=== PATIENT | female | born 1990 | race American Indian/Alaskan Native ===

== ENCOUNTER 2018-03-31 23:32 | Emergency (ER) | payer BC ==
[2018-03-31 23:50] VITALS: BP 162/110; PULSE 80; RESP 16; TEMP 98.6; O2SAT 99
--- NOTE | 2018-04-01 00:26 | C.PDOC ---
History Of Present Illness 27 y/o female patient presented to ED c/o generalized itching and tingling that began a few hours ago after taking macrobid which was prescribed to her earlier today to treat her UTI. Patient denies taking anything for the symptoms. She also denies rash, shortness of breath, chest tightness Time Seen by Provider: 03/31/18 23:56 Chief Complaint (Nursing): Allergic Reaction History Per: Patient History/Exam Limitations: no limitations Onset/Duration Of Symptoms: Hrs Current Symptoms Are (Timing): Still Present Possible Cause: Medication (macrobid) Associated Symptoms: Itching, Other (tingling) Home/EMS Treatment: None Past Medical History Reviewed: Historical Data, Nursing Documentation, Vital Signs Vital Signs: Last Vital Signs Temp 98.6 F 03/31/18 23:46 Pulse 80 03/31/18 23:46 Resp 16 03/31/18 23:46 BP 162/110 H 03/31/18 23:46 Pulse Ox 99 04/01/18 01:54 Surgical History: No Surg Hx Family History: States: No Known Family Hx - Social History Hx Alcohol Use: Yes Hx Substance Use: No Review Of Systems Cardiovascular: Negative for: Other (chest tightness) Respiratory: Negative for: Shortness of Breath Skin: Negative for: Rash Physical Exam - Physical Exam Appears: Non-toxic, No Acute Distress Skin: Normal Color, Warm, Dry, No Rash, No Other (hives) Head: Atraumatic, Normacephalic Eye(s): bilateral: Normal Inspection Oral Mucosa: Moist Tongue: Normal Appearing, No Swelling Lips: Normal Appearing, No Swelling Throat: Normal, No Erythema, No Other (Swelling) Neck: Normal, Supple, No Other (Swelling) Chest: Symmetrical, No Tenderness Cardiovascular: Rhythm Regular Respiratory: Normal Breath Sounds, No Accessory Muscle Use, No Rales, No Rhonchi , No Stridor, No Wheezing Neurological/Psych: Oriented x3, Normal Speech Gait: Steady ED Course And Treatment O2 Sat by Pulse Oximetry: 99 (RA) Pulse Ox Interpretation: Normal Progress Note: Benadryl and prednisone were ordered. Patient is resting comfortably in the ER, tolerating PO, has no shortness of breath, and was advised to follow up with physican in 1-2 days, or return if symptoms worsen. 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 - Scribe Statement The provider has reviewed the documentation as recorded by the Phuc Moniqueed All medical record entries made by the Phuc were at my direction and personally dictated by me. I have reviewed the chart and agree that the record accurately reflects my personal performance of the history, physical exam, medical decision making, and the department course for this patient. I have also personally directed, reviewed, and agree with the discharge instructions and disposition.
== END 2018-04-01 00:45 | disposition home or self-care (01) ==
LOC: C.ER 23:32
DX: T78.40XA Allergy, unspecified, initial encounter (principal); T50.995A Adverse effect of other drugs, medicaments and biological substances, initial encounter; Y92.89 Other specified places as the place of occurrence of the external cause

== ENCOUNTER 2018-11-16 11:35 | Emergency (ER) | payer BC ==
[2018-11-16 11:45] VITALS: RESP 20
--- NOTE | 2018-11-16 14:18 | C.PDOC ---
History Of Present Illness 28 year old female presents to the ED complaining of pain to "tailbone" since yesterday. Reports she was in the passenger seat in a vehicle going to [place] from [place] and when she got out of the car after one hour drive, she felt mild pain to tailbone area. States pain was 5/10 yesterday but feels like a 9/10 while in the ED. Pain is worse with walking, standing, and on occasion with sitting. Pain is alleviated when laying down. Notes she took Advil last night and noted little relief. Denies any trauma, weakness, recent illness, sudden sedentary lifestyle, or any other complaints. Time Seen by Provider: 11/16/18 11:53 Chief Complaint (Nursing): Back Pain History Per: Patient History/Exam Limitations: no limitations Onset/Duration Of Symptoms: Days (1) Current Symptoms Are (Timing): Still Present Quality Of Discomfort: "Pain" Pain Scale Rating Of: 9 Previous Symptoms: None Associated Symptoms: None Exacerbating Factor(s): Movement, Sitting, Standing Past Medical History Reviewed: Historical Data, Nursing Documentation, Vital Signs Vital Signs: Last Vital Signs Temp 99.1 F 11/16/18 11:44 Pulse 101 H 11/16/18 11:44 Resp 20 11/16/18 11:44 BP 138/86 11/16/18 11:44 Pulse Ox 99 11/16/18 11:44 - Medical History PMH: HTN Other Surgeries: Hx of surgeries Family History: States: No Known Family Hx - Social History Hx Alcohol Use: Yes Hx Substance Use: No Review Of Systems Constitutional: Negative for: Fever, Chills Respiratory: Negative for: Shortness of Breath Musculoskeletal: Positive for: Back Pain (tailbone pain ) Neurological: Negative for: Weakness, Numbness, Other (paresthesia ) Physical Exam - Physical Exam Appears: Non-toxic, No Acute Distress Skin: Warm, Dry Head: Normacephalic Eye(s): bilateral: PERRL, EOMI Oral Mucosa: Moist Chest: Symmetrical Cardiovascular: Rhythm Regular Respiratory: No Rales, No Rhonchi, No Wheezing Rectal: Other (no rash or abscess noted to sacral area, + pinpoint pain upon palpation of area ) Extremity: Capillary Refill (less than 2 sec to sacral area ) Extremity: Bilateral: Atraumatic, Normal Color And Temperature, Normal ROM Neurological/Psych: Oriented x3, Normal Speech, Normal Motor, Normal Sensation, Other (Neurovascular intact ) Gait: Steady ED Course And Treatment O2 Sat by Pulse Oximetry: 99 (RA) Pulse Ox Interpretation: Normal - Other Rad XR Sacrum and Coccyx X-Ray: Viewed By Me, Read By Radiologist Interpretation: Sacrum three views. HISTORY: Sacral pain. COMPARISON: None available. FINDINGS: No evidence of acute displaced fracture or dislocation. Bowel gas somewhat limits evaluation on the frontal view. Impression: Negative acute. If pain persists, consider MRI. Medical Decision Making Medical Decision Making: Plan: - Motrin 600mg PO - POC Urine Preg - XR Sacrum and Coccyx- unremarkable patient reassessed and notices some relief with Motrin advised to follow up with ortho in 1-2 days rest the area, apply ice/ warm compresses Patient verbalizes understanding and is in agreement with plan. Patient is stable for discharge. Disposition Counseled Patient/Family Regarding: Studies Performed, Diagnosis, Need For Followup, Rx Given - Disposition Referrals: Ralf Coats MD [Staff Provider] - Disposition: HOME/ ROUTINE Disposition Time: 14:15 Condition: IMPROVED Additional Instructions: Continue Motrin as needed for pain Follow up with Ortho in 1-2 days for possible MRI Rest the area Return to ED if symptoms worsen Prescriptions: Ibuprofen [Motrin] 600 mg PO Q8 #30 tab Instructions: Sacroiliac Joint Pain (DC) Forms: [facility] (Persian), Work Excuse - Clinical Impression Clinical Impression: Sacral back pain - PA / [employer]PER[employer]OR / Resident Statement MD/DO has reviewed & agrees with the documentation as recorded. - Scribe Statement The provider has reviewed the documentation as recorded by the Gilmaibrosaura Watson All medical record entries made by the Phuc were at my direction and personally dictated by me. I have reviewed the chart and agree that the record accurately reflects my personal performance of the history, physical exam, medical decision making, and the department course for this patient. I have also personally directed, reviewed, and agree with the discharge instructions and disposition.
[2018-11-16 14:50] VITALS: BP 136/71; PULSE 93; TEMP 98.7
[2018-11-16 15:12] VITALS: O2SAT 99
== END 2018-11-16 14:49 | disposition home or self-care (01) ==
LOC: C.ER 11:35
DX: M53.3 Sacrococcygeal disorders, not elsewhere classified (principal)